=== PATIENT | male | born 1980 | race Two or more races ===

== ENCOUNTER 2016-10-29 01:26 | Emergency (ER) | payer SELFPAY ==
[2016-10-29] MEDS ORDERED: LIDOCAINE 5% (700 MG) TRANSDERMAL ADH..PATCH TP ONE (01:57)
[2016-10-29] MEDS ORDERED: IBUPROFEN 600 MG TABLET PO ONE (01:57)
--- NOTE | 2016-10-29 02:01 | ER Document Report ---
ED General - General Chief Complaint: Rib Pain Stated Complaint: RIB PAIN Time Seen by Provider: 10/29/16 01:56 TRAVEL OUTSIDE OF THE [place] IN LAST 30 DAYS: No - Related Data Allergies/Adverse Reactions: No Known Allergies Allergy (Verified 06/14/14 12:39) Past Medical History - Social History Chew tobacco use (# tins/day): No Drug Abuse: None Family History: Reviewed & Not Pertinent Patient has suicidal ideation: No Patient has homicidal ideation: No - Past Medical History Cardiac Medical History: Denies: Hx Atrial Fibrillation, Hx Congestive Heart Failure, Hx Coronary Artery Disease, Hx Heart Attack, Hx Hypercholesterolemia, Hx Hypertension, Hx Peripheral Vascular Disease, Hx Pulmonary Embolism, Hx Heart Murmur Pulmonary Medical History: Denies: Hx Asthma, Hx Bronchitis, Hx COPD, Hx Pneumonia, Hx Respiratory Failure, Hx Sleep Apnea, Hx Tuberculosis Neurological Medical History: Denies: Hx Cerebrovascular Accident, Hx Seizures Endocrine Medical History: Denies: Hx Graves' Disease, Hx Hyperthyroidism, Hx Hypothyroidism Renal/ Medical History: Denies: Hx Benign Prostatic Hyperplasia, Hx End Stage Renal Disease, Hx Kidney Stones, Hx Peritoneal Dialysis Malignancy Medical History: Denies Hx Leukemia, Denies Hx Lung Cancer GI Medical History: Denies: Hx Crohn's Disease, Hx Gastroesophageal Reflux Disease, Hx Hiatal Hernia, Hx Irritable Bowel, Hx Liver Failure, Hx Ulcer Musculoskeltal Medical History: Denies Hx Arthritis, Denies Hx Fibromyalgia, Denies Hx Multiple Sclerosis, Denies Hx Muscular Dystrophy Psychiatric Medical History: Denies: Hx Bipolar Disorder, Hx Dementia, Hx Depression, Hx Post Traumatic Stress Disorder, Hx Schizophrenia Traumatic Medical History: Reports: Hx Fractures - finger, ankles, toes Infectious Medical History: Denies: Hx HIV Past Surgical History: Denies: Hx Colostomy, Hx Pacemaker - Immunizations Immunizations up to date: Yes Hx Diphtheria, Pertussis, Tetanus Vaccination: Yes Physical Exam - Vital signs Vitals: Temp Pulse Resp BP Pulse Ox 97.6 F 89 20 124/66 98 10/29/16 01:39 10/29/16 01:39 10/29/16 01:39 10/29/16 01:39 10/29/16 01:39 Course - Vital Signs Vital signs: Temp Pulse Resp BP Pulse Ox 97.6 F 81 18 137/74 H 97 10/29/16 01:39 10/29/16 02:19 10/29/16 02:19 10/29/16 02:19 10/29/16 02:19 - Diagnostic Test Radiology reviewed: Image reviewed, Reports reviewed Radiology results interpreted by me: 10/29/16 01:59 Chest x-ray: No pneumothorax or rib fractures Discharge - Discharge Clinical Impression: Rib injury Condition: Good Disposition: HOME, SELF-CARE Additional Instructions: Your chest wall pain is due to bruising of your ribs. This pain can last for up to 6 weeks. It is very important that you continue to take purposeful deep breaths. For your pain: Continue to take ibuprofen 600 mg every 6 hours or Tylenol 1000 mg every 6 hours. Apply local lidocaine to the area per bottle instructions. There is a product sold [id number] called "Aspercreme with lidocaine" that you can use for this purpose. Please follow-up with her primary care doctor in the next 2-3 days. Return to the emergency department immediately if you develop worsening shortness of breath, increased pain, begin coughing blood, pass out, or have any other symptoms that are worrisome to you.
--- NOTE | 2016-10-29 02:11 | RADIOLOGY REPORT (SQ) ---
EXAM DESCRIPTION: RIBS RIGHT W/PA CHEST COMPLETED DATE/TIME: 10/29/2016 1:52 am REASON FOR STUDY: injury COMPARISON: None. TECHNIQUE: Frontal view of the chest and additional views of the right ribs acquired. NUMBER OF VIEWS: Five view. LIMITATIONS: None. FINDINGS: FRONTAL CXR: No pneumothorax. No pleural effusion. No atelectasis or infiltrates. RIBS: No displaced rib fractures. No lytic or blastic bony lesions. OTHER: No other significant finding. Moderate L3-L4 disc desiccation. IMPRESSION: NO PNEUMOTHORAX. NO DISPLACED RIB FRACTURES. COMMENT: SITE OF TRAUMA/COMPLAINT MARKED/STAMP COMPLETED: NO. TECHNICAL DOCUMENTATION: JOB ID: [id number] [employer]- All Rights Reserved
[2016-10-29 02:21] VITALS: BP 137/74
--- NOTE | 2016-10-29 02:35 | ER Document Report ---
Doctor's Note Notes: 10/29/16 02:33 I had signed up to see this patient and have reviewed the x-rays and as well as prior past medical history. Vitals as well as triage assessment was reviewed. Discharge paperwork was completed and prepared although patient was never listed as being up for discharge. When I went to go see the patient shortly after printing the paperwork, I found that he had already been discharged by the nurse Андрей Melo. I never authorize this discharge and patient was never listed as discharged in the system. Multiple attempts were made to contact the patient as I had not yet completed a medical screening exam. All numbers listed in the system were contacted and only one was a valid number. I did leave a voicemail encouraging patient to please return to the emergency department so I could complete an assessment.
== END 2016-10-29 02:19 | disposition home or self-care (01) ==
LOC: ER 01:26
DX: S29.9XXA Unspecified injury of thorax, initial encounter (principal); R07.81 Pleurodynia; X58.XXXA Exposure to other specified factors, initial encounter
CPT/HCPCS: 99283

== ENCOUNTER 2017-01-19 12:34 | Emergency (ER) | payer SELFPAY ==
[2017-01-19 12:41] VITALS: BP 124/88
--- NOTE | 2017-01-19 12:44 | ER Document Report ---
HPI - HPI Patient complains to provider of: left lower leg ? spide bites Onset: This morning Onset/Duration: Gradual Pain Level: 5 Context: 36-year-old male woke up this morning with 2 pustules in the left lateral lower leg which she squeezed and popped the pus out of. The redness swelling and pain increased while he was at court this morning. He does not know if something bit him during the night. He has had a abscess IND in the past. No fever. No diabetes. Associated Symptoms: None Exacerbated by: Denies Relieved by: Denies - ROS ROS below otherwise negative: Yes Systems Reviewed and Negative: Yes All other systems reviewed and negative - REPRODUCTIVE Reproductive: DENIES: : - DERM Skin Color: Normal Past Medical History - General Information source: Patient - Social History Smoking Status: Unknown if Ever Smoked Frequency of alcohol use: None Drug Abuse: None Lives with: Family Family History: Reviewed & Not Pertinent Patient has suicidal ideation: No Patient has homicidal ideation: No Traumatic Medical History: Reports: Hx Fractures - finger, ankles, toes Surgical Hx: Negative - Immunizations Immunizations up to date: Yes Hx Diphtheria, Pertussis, Tetanus Vaccination: Yes Vertical Provider Document - CONSTITUTIONAL Agree With Documented VS: Yes Exam Limitations: No Limitations - INFECTION CONTROL TRAVEL OUTSIDE OF THE [place] IN LAST 30 DAYS: No - HEENT HEENT: Normocephalic - NECK Neck: Supple - RESPIRATORY O2 Sat by Pulse Oximetry: 98 - MUSCULOSKELETAL/EXTREMETIES Musculoskeletal/Extremeties: MAEW, FROM, Tender - see below - NEURO Level of Consciousness: Awake, Alert - DERM Integumentary: Abscess - 2 lesions with white roof, surrounding tender erythema that is warm, left lower lateral leg, no circmferential Course - Vital Signs Vital signs: Temp Pulse Resp BP Pulse Ox 97.9 F 95 20 124/88 H 98 01/19/17 12:39 01/19/17 12:39 01/19/17 12:39 01/19/17 12:39 01/19/17 12:39 Procedures - Incision and Drainage Left Leg Time completed: 13:15 Type: Simple Anesthetic type: 1% Lidocaine mL's of anesthetic: 4 Blade size: 11 I&D procedure: Betadine prep applied Incision Method: Incision made by scalpel - 4 mm cuts to the lesions, t shpaed, blood, no pus, probed, packed with corner of 4 x 4 gauze Discharge - Discharge Clinical Impression: incision and drainage abscess Condition: Good Disposition: HOME, SELF-CARE Instructions: Abscess ([facility]), Anti-Inflammatory Medication ([facility]), Trimethoprim- Sulfa ([facility]) Additional Instructions: elevate warm compress for 2 days take the antibiotics to er if worse swelling, pain, red, fever, or any concerns, Please complete the patient satisfaction survey if you get one, and return it.. If you do not receive a survey, then you can go to the [facility] website, [email or web address] and place your comments about your very good care. Thank you very much. It was a pleasure being your medical provider today. Prescriptions: Ibuprofen [Motrin 800 mg Tablet] 800 mg PO Q8HP PRN #30 tablet PRN Reason: Sulfamethoxazole/Trimethoprim [Sulfamethoxazole-Tmp Ds Tablet] 1 each PO BID # 14 tablet Forms: Return to Work
[2017-01-19] MEDS ORDERED: IBUPROFEN 800 MG TABLET PO ONE (12:46)
[2017-01-19] MEDS ORDERED: SULFAMETHOXAZOLE/TRIMETHOPRIM 800-160 MG TABLET PO ONE (12:46)
== END 2017-01-19 13:23 | disposition home or self-care (01) ==
LOC: ER 12:34
PROC: 0H9LXZZ Drainage of Left Lower Leg Skin, External Approach (ICD-10-PCS; principal; 2017-01-19)
DX: L02.416 Cutaneous abscess of left lower limb (principal)
CPT/HCPCS: 99283

== ENCOUNTER 2017-05-23 02:06 | Emergency (ER) | payer SELFPAY ==
[2017-05-23] MEDS ORDERED: METHYLPREDNISOLONE INJ 125 MG/2 ML SDV IM ONE (03:33)
[2017-05-23] MEDS ORDERED: FAMOTIDINE 20 MG TABLET PO ONE (03:35)
[2017-05-23] MEDS ORDERED: DIPHENHYDRAMINE HCL 50 MG CAPSULE PO ONE (03:35)
--- NOTE | 2017-05-23 03:35 | ER Document Report ---
HPI - HPI Pain Level: 5 Notes: Patient is a 36-year-old male with no significant past medical history presents the ED complaining of a generalized rash with no known etiology. Patient states that the rash showed up this morning when he woke up. Patient has noticed raised scratch-like appearance to the areas on his trunk and extremities. Patient states that the rash is pruritic. He has not noticed any abscess or purulent discharge. Patient is not aware of any changes to soaps, detergents, chemicals, new clothes, changes in diet, insect bites, recent illness, or travel. Patient has been using Benadryl with minimal relief. He still eating and drinking without any difficulties. He is urinating normally and having normal bowel movements. Patient denies any drug allergies. Patient admits to smoking and smoking marijuana, but denies any IV drug use. Denies any headache, fever, neck pain, URI, sore throat, chest pain, palpitations, syncope, cough, shortness of breath, wheeze, dyspnea, abdominal pain, nausea/ vomiting/diarrhea, urinary retention, dysuria, hematuria, loss of control of bowel or bladder, numbness/tingling, joint pains, muscle paralysis/weakness. - ROS Notes: REVIEW OF SYSTEMS: CONSTITUTIONAL : Denies fever, chills, or sweats. Denies recent illness. EENT: Denies eye, ear, throat, or mouth pain or symptoms. Denies nasal or sinus congestion or discharge. Denies throat, tongue, or mouth swelling or difficulty swallowing. CARDIOVASCULAR: Denies chest pain. Denies palpitations or racing or irregular heart beat. RESPIRATORY: Denies cough, cold, or chest congestion. Denies shortness of breath, difficulty breathing, or wheezing. GASTROINTESTINAL: Denies abdominal pain or distention. Denies nausea, vomiting , or diarrhea. Denies blood in vomitus, stools, or per rectum. Denies black, tarry stools. Denies constipation. GENITOURINARY: Denies difficulty urinating, painful urination, burning, frequency, blood in urine, or discharge. MUSCULOSKELETAL: Denies back or neck pain or stiffness. Denies joint pain or swelling. SKIN: see hpi NEUROLOGICAL: Denies passing out or loss of consciousness. Denies dizziness or lightheadedness. Denies headache. Denies weakness or paralysis or loss of use of either side. Denies problems with gait or speech. Denies sensory loss, numbness, or tingling. Denies seizures. ALL OTHER SYSTEMS REVIEWED AND NEGATIVE. Dictation was performed using [employer] voice recognition software - REPRODUCTIVE Reproductive: DENIES: : Past Medical History - Social History Smoking Status: Never Smoker Family History: Reviewed & Not Pertinent - Past Medical History Cardiac Medical History: Denies: Hx Atrial Fibrillation, Hx Congestive Heart Failure, Hx Coronary Artery Disease, Hx Heart Attack, Hx Hypercholesterolemia, Hx Hypertension, Hx Peripheral Vascular Disease, Hx Pulmonary Embolism, Hx Heart Murmur Pulmonary Medical History: Denies: Hx Asthma, Hx Bronchitis, Hx COPD, Hx Pneumonia, Hx Respiratory Failure, Hx Sleep Apnea, Hx Tuberculosis Neurological Medical History: Denies: Hx Cerebrovascular Accident, Hx Seizures Endocrine Medical History: Denies: Hx Graves' Disease, Hx Hyperthyroidism, Hx Hypothyroidism Renal/ Medical History: Denies: Hx Benign Prostatic Hyperplasia, Hx End Stage Renal Disease, Hx Kidney Stones, Hx Peritoneal Dialysis Malignancy Medical History: Denies Hx Leukemia, Denies Hx Lung Cancer GI Medical History: Denies: Hx Crohn's Disease, Hx Gastroesophageal Reflux Disease, Hx Hiatal Hernia, Hx Irritable Bowel, Hx Liver Failure, Hx Pancreatitis , Hx Ulcer Musculoskeltal Medical History: Denies Hx Arthritis, Denies Hx Fibromyalgia, Denies Hx Multiple Sclerosis, Denies Hx Muscular Dystrophy Psychiatric Medical History: Denies: Hx Bipolar Disorder, Hx Dementia, Hx Depression, Hx Post Traumatic Stress Disorder, Hx Schizophrenia Traumatic Medical History: Reports: Hx Fractures - finger, ankles, toes Infectious Medical History: Denies: Hx HIV Past Surgical History: Denies: Hx Colostomy, Hx Pacemaker - Immunizations Immunizations up to date: Yes Hx Diphtheria, Pertussis, Tetanus Vaccination: Yes Vertical Provider Document - CONSTITUTIONAL Agree With Documented VS: Yes Notes: PHYSICAL EXAMINATION: GENERAL: Well-appearing, well-nourished and in no acute distress. HEAD: Atraumatic, normocephalic. EYES: Pupils equal round and reactive to light, extraocular movements intact, sclera anicteric, conjunctiva are normal. ENT: Nares patent and without discharge. oropharynx clear without exudates. No tonsilar hypertrophy or erythema. Moist mucous membranes. No sinus tenderness. NECK: Normal range of motion, supple without lymphadenopathy LUNGS: Breath sounds clear to auscultation bilaterally and equal. No wheezes rales or rhonchi. HEART: Regular rate and rhythm without murmurs, rubs, gallops. ABDOMEN: Soft, nontender, nondistended abdomen. No guarding, no rebound. No masses appreciated. Normal bowel sounds present. No CVA tenderness bilaterally. Musculoskeletal: FROM to passive/active. Strength 5+/5. Extremities: No cyanosis, clubbing, or edema b/l. Peripheral pulses 2+. Capillary refill less than 3 seconds. NEUROLOGICAL: Cranial nerves grossly intact. Normal speech, normal gait. Normal sensory, motor exams PSYCH: Normal mood, normal affect. SKIN: There is a generalized raised dermatography-like rash to the trunk and extremities. I am unable to recreate the dermatography, however. Non-tender. No abscess, streaks, or purulence. - INFECTION CONTROL TRAVEL OUTSIDE OF THE [place] IN LAST 30 DAYS: No - RESPIRATORY O2 Sat by Pulse Oximetry: 100 Course - Re-evaluation Re-evalutation: 05/23/17 04:12 Patient is an afebrile, well-hydrated, 36-year-old male who presents to the ED with a skin rash unspecified, suspect allergic type reaction. Vitals are stable. PE is otherwise unremarkable. Low suspicion for any systemic emergent condition at this time. Benadryl, Pepcid, Solu-Medrol given today. I will send him home with a prescription for a prednisone taper as well as hydroxyzine. Conservative measures otherwise for symptoms. Recheck with your PCM in 3-5 days. Consider consult with dermatology. Return to the ED with any worsening/concerning symptoms otherwise as reviewed in discharge. Patient is in agreement. Dr. Montenegro also eval'd the patient and is in agreement with discharge/plan. - Vital Signs Vital signs: Temp Pulse Resp BP Pulse Ox 98.3 F 70 18 138/80 H 100 05/23/17 02:11 05/23/17 02:11 05/23/17 02:11 05/23/17 02:11 05/23/17 02:11 Discharge - Discharge Clinical Impression: Rash and nonspecific skin eruption Condition: Stable Disposition: HOME, SELF-CARE Instructions: Steroid Medication Additional Instructions: Keep the skin clean Wash with soap and water Tylenol/ibuprofen if needed Triple antibiotic ointment daily for any break in the skin. Take medication as directed May use otc anti-itch creams as needed Monitor for any worsening symptoms Recheck with your PCM in 3-5 days Consider consult with Dermatology for ongoing/worsening symptoms Return to the ED with any worsening symptoms and/or development of fever, headache, chest pain, palpitations, syncope, shortness of breath, trouble breathing, abdominal pain, n/v/d, abscess, purulent discharge, red streaks, worsening swelling, or other worsening symptoms that are concerning to you. Prescriptions: Hydroxyzine Pamoate [Vistaril 50 mg Capsule] 50 mg PO TID PRN #15 capsule PRN Reason: Prednisone [Deltasone 10 mg Tablet] 10 mg PO ASDIR PRN #21 tablet PRN Reason: Forms: Elevated Blood Pressure, Smoking Cessation Education Referrals: NEON PACE DO [ACTIVE STAFF] - Follow up as needed
[2017-05-23 04:19] VITALS: BP 127/64
== END 2017-05-23 04:11 | disposition home or self-care (01) ==
LOC: ER 02:06
DX: R21 Rash and other nonspecific skin eruption (principal)
CPT/HCPCS: 99282; 96372; J2930